=== PATIENT | female | born 1985 | race Caucasian/White ===

== ENCOUNTER 2019-09-06 09:38 | Emergency (ER) | payer OTHER, BC ==
[2019-09-06 09:54] VITALS: TEMP 98.3
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
[2019-09-06] MEDS ORDERED: KETOROLAC 60 MG/2 ML VIAL IM STA (11:14)
[2019-09-06] MEDS ORDERED: CYCLOBENZAPRINE 10MG STARTER 3 TAB BTL PO STA (11:14)
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
[2019-09-06 13:26] VITALS: BP 122/71; PULSE 72; RESP 20
== END 2019-09-06 13:22 | disposition home or self-care (01) ==
LOC: EC 09:38
DX: S16.1XXA Strain of muscle, fascia and tendon at neck level, initial encounter (principal); J92.9 Pleural plaque without asbestos; Z88.2 Allergy status to sulfonamides; Z79.899 Other long term (current) drug therapy; Z87.891 Personal history of nicotine dependence; V47.5XXA Car driver injured in collision with fixed or stationary object in traffic accident, initial encounter; Y92.410 Unspecified street and highway as the place of occurrence of the external cause
CPT/HCPCS: 71046; 72125; 72141; 99284; 96372; J1885